=== PATIENT | male | born 1985 | race Caucasian/White ===

== ENCOUNTER 2017-01-25 19:05 | Emergency (ER) | payer BC | END 2017-01-25 20:00 | disposition home or self-care (01) | LOC: SED 19:05 | DX: L03.114 Cellulitis of left upper limb (principal); F17.210 Nicotine dependence, cigarettes, uncomplicated; Z88.0 Allergy status to penicillin; Z88.7 Allergy status to serum and vaccine | CPT/HCPCS: 99282 ==

== ENCOUNTER 2017-01-29 22:19 | Emergency (ER) | payer BC ==
[2017-01-29] MEDS ORDERED: BACTRIM DS TAB1 EACH PO (22:45)
[2017-01-29] MEDS ORDERED: KEFLEX500 MG PO (22:46)
== END 2017-01-30 00:11 | disposition home or self-care (01) ==
LOC: SED 22:19
DX: L02.414 Cutaneous abscess of left upper limb (principal); F17.200 Nicotine dependence, unspecified, uncomplicated; Z88.0 Allergy status to penicillin; Z79.899 Other long term (current) drug therapy
CPT/HCPCS: 10060; 87070; 87077; 87205; 99283